=== PATIENT | female | born 1985 ===

== ENCOUNTER → 2016-05-14 11:05 | Day surgery (SDC) | payer OTHER ==
[~2016-05-14 11:05] MED LIST: Buffered Lidocaine 1% SYR 3ML* 3 ML/SYR SYRINGE INTRADERM ONE; Dexamethasone IV* 4 MG/ML 1 ML (4 MG) ONE; DiMENhydriNATE IV* 50 MG/ML VIAL IV PUSH PRN; DiMENhydriNATE IV* 50 MG/ML VIAL ONE; Ketorolac INJ* 30 MG/ML 1 ML VIAL IV PRN; Ketorolac INJ* 30 MG/ML 1 ML VIAL ONE; Lidocain 1% EPI 1:100,000 * 30 ML MDV ONE; Lidocaine 2% PF * 5 ML VIAL ONE; Ondansetron INJ* 2 MG/ML VIAL ONE; Propofol* 10 MG/ML 20 ML BTL IV PUSH ONE; Scopolamine 1.5 mg* PATCH ONE; Scopolamine 1.5 mg* PATCH TRANSDERM SCH; Scopolamine PATCH Remove* 1 NOTE MISC PATCH OFF SCH; fentaNYL* 50 MCG/ML 2 ML VIAL (100 MCG VIAL) ONE; oxyCODONE ORAL.SOLN* 5 MG/5 ML UDC ONE; oxyCODONE/Acetamin 5/325 MG* TAB PO PRN
[2016-05-14 11:38] LABS: Manual Entry Verification DOM0004; UR Preg Internal Control QC Line Present
[2016-05-14] MEDS: fentaNYL* 50 MCG/ML 2 ML VIAL (100 MCG VIAL) IV PRN ×2 (15:32→15:43)
[2016-05-14 16:56] VITALS: BP 112/70
--- NOTE | 2016-05-15 05:39 | OP ---
DATE OF OPERATION: 05/14/16 [facility] DATE OF : 89 SURGEON: Alban Meng MD NEWS REEL CAMERAMAN: Alf Douglass MD ANESTHESIOLOGIST: Reid Rios MD ANESTHESIA: General. PRE-OP DIAGNOSIS: Right neck mass. POST-OP DIAGNOSIS: Right neck mass. OPERATIVE PROCEDURE: Excision, right neck mass. ESTIMATED BLOOD LOSS: Less than 20 cc. SPECIMENS: Right neck mass sent to pathology fresh. INDICATION: This is a 30-year-old woman who developed sudden onset of right neck mass approximately 4 months ago. It grew progressively larger and at one point became quite tender. She was placed on antibiotics with resolution of the pain but no resolution of mass. She had fine-needle aspiration performed, which demonstrated acute on chronic inflammatory cells with some epithelial cells as well. The initial concern was that she might have had an infected branchial cleft cyst, although subsequent CT scan imaging demonstrated what appeared to be a mat of lymph nodes with at least two nodes having necrotic centers based on the patient's failure to resolve over time and the presence of epithelial cells in the initial fine-needle aspiration. The decision was made to proceed with elective excision. DESCRIPTION OF PROCEDURE: On 05/14/16, the patient was brought to the operating room. General anesthesia was induced and oral endotracheal tube was placed. The patient was positioned. The intended incision site marked. The skin was prepped with alcohol, 2 cc of 1% lidocaine with epinephrine were infiltrated into the subcutaneous soft tissue. The neck was then prepped with Betadine and the patient was sterilely draped. A time-out was performed. A # 15 blade was used to make a skin incision through the skin and dermis. A dissection was then undertaken in a painstaking fashion as the mass of matted lymph nodes was dissected free of the sternocleidomastoid muscle and the jugular vein. The spinal accessory nerve was also identified visually and preserved intact as the packet of nodes was delivered. There was significant associated fibrosis and scarring around the mass of lymph nodes. At one point, some suppurative material did express out of one of the nodes. Once the mass was removed, it was placed in saline and sent to pathology. The wound was then copiously irrigated. There was minimal bleeding, few small areas of bleeding on the cut edge of the sternocleidomastoid muscle was cauterized with bipolar forceps. The wound was then closed in layers, deep layer of 4-0 Vicryl was used to reapproximate the dermis, more superficial closure was accomplished then with 5-0 nylon in a running subcuticular fashion. Steri-Strips were then placed with Mastisol. The patient was returned to the care of the anesthesiologist, extubated without difficulty and delivered to the PACU in stable condition. [id number]/[facility] #: [id number] MTDD
== END | disposition home or self-care (01) ==
LOC: OR 11:05
PROVIDERS: ATTEND Otolaryngology
DX: R59.0 Localized enlarged lymph nodes (principal)
CPT/HCPCS: 81025; 87070; 87073; 87076; 87116; 87176; 87181; 87205; 87206; 88184; 88185; 88188; 88305; 88312; A9270-GY; J1100; J1240; J1885; J2405; J2704; J3010